=== PATIENT | male | born 1975 | race Caucasian/White ===

== ENCOUNTER 2021-04-25 11:06 | Emergency (ER) | payer SELFPAY ==
[~2021-04-25] VITALS: Ht 170.2 cm; Wt 82.0 kg
[~2021-04-25 11:06] MED LIST: IBUP-2028 PO
[2021-04-25 11:39] VITALS: BP 122/80
[2021-04-25] MEDS ORDERED: CLOT15CR27 TP ×3 (11:40→11:42)
== END 2021-04-25 11:48 | disposition home or self-care (01) ==
LOC: ER 11:06
DX: B35.3 Tinea pedis (principal)
CPT/HCPCS: 99282